=== PATIENT | male | born 1970 | race Caucasian/White ===

== ENCOUNTER 2024-10-06 18:57 | Emergency (ER) | payer OTHER, SELFPAY ==
--- NOTE | ~2024-10-06 | XR_ITS ---
EXAM: XR ankle LT min 3V DATE: 10/06/2024 19:25 HISTORY: pain . COMPARISON: None available. FINDINGS: Normal mineralization. Oblique fracture of the distal left fibula, with 2 mm lateral displ acement, extending to the joint line (Puente type B). Widening of the lateral gutter. No lytic or amairani tic lesion. Degenerative changes at the ankle joint and midfoot. Pes planus. Plantar and Achilles ent hesopathy. No erosion or periosteal change. Ankle soft tissue swelling. IMPRESSION: Oblique, mildly displaced fracture of the distal left fibula. Reviewed, dictated and finalized at location K.
--- NOTE | 2024-10-06 19:02 | ED.LOWEXIN ---
HPI - Extremity Injury (Lower) General Chief Complaint: Extremity Injury, Lower Stated Complaint: Fell Left ankle Time Seen by Provider: 10/06/24 19:02 Patient presents to the [facility] accompanied by family with complaints of left ankle pain and swelling that began about 2 hours prior to arrival when patient was walking in his yd and slipped in a hole. Patient noticed significant pain with weight-bearing in significant swelling but this should be looked at. Denies numbness or tingling in foot or toes. Related Data Allergies Allergy/AdvReac Type Severity Reaction Status Date / Time No Known Allergies Allergy Verified 10/06/24 19:13 Review of Systems Constitutional: Constitutional: Reports as per HPI, Denies chills, Denies fatigue, Denies fever(s) and Denies weakness Eyes: Eyes: Reports no additional eye complaints Cardiovascular: Cardiovascular: Reports no additional cardiovascular complaints Respiratory: Respiratory: Reports no additional respiratory complaints Gastrointestinal: Gastrointestinal: Reports no additional gastrointestinal complaints Genitourinary: Genitourinary: Reports no additional male genitourinary complaints Musculoskeletal: Musculoskeletal: Reports as per HPI, Reports arthralgias, Reports joint swelling and Denies muscle cramps Integumentary/Breasts: Skin/Breast: Reports as per HPI, Denies pruritus, Denies rash and Denies skin ulcer Neurologic: Reports as per HPI, Denies numbness and Denies weakness Psychiatric: Psychiatric: Reports no additional psychiatric complaints Endocrine: Endocrine: Reports no additional endocrine complaints Hematologic/Lymphatic: Hematologic/Lymphatic: Reports no additional hematologic/lymphatic complaints Allergic/Immunologic: Allergic/Immunologic: Reports no additional allergic/immunologic complaints Exam Const: General: healthy appearing and no acute distress Nutritional Appearance: well nourished Orientation/consciousness: patient oriented x3 Limitations: no limitations Resp: Effort & Inspection: normal respiratory effort Cardio: Rate: regular rate Skin: General skin exam: normal color Rashes: no rashes Wounds: no wounds Neuro: General: patient oriented x3 Speech: normal speech Gait exam (Neuro): gait abnormal ( Limping, limited by pain) Extrem: Left lower extremity: ankle Details: abnormal to inspection, tenderness, swelling, pitting edema and abnormal ROM; no abrasions, no lacerations, no ecchymosis, no crepitus and achilles tendon exam normal Psych: Mental Status: mental status grossly normal Affect: normal affect Attitude: cooperative Course Course Level of Care: Express Care Visit Vital Signs Vital signs: Vital Signs Temperature 98.4 F 10/06/24 19:10 Pulse Rate 66 10/06/24 19:10 Respiratory Rate 20 10/06/24 19:10 Blood Pressure 149/92 H 10/06/24 19:10 Pulse Oximetry 100 10/06/24 19:10 Oxygen Delivery Room Air 10/06/24 19:10 Temperature 98.4 F 10/06/24 19:10 Pulse Rate 66 10/06/24 19:10 Respiratory Rate 20 10/06/24 19:10 Blood Pressure 149/92 H 10/06/24 19:10 Pulse Oximetry 100 10/06/24 19:10 Oxygen Delivery Room Air 10/06/24 19:10 MDM - Extremity Injury (Lower) MDM Narrative Medical decision making narrative: x-rays ordered spoke with patient about fracture. Noted he has tolerated hydrocodone in the past. Will send patient a prescription Discharge instructions reviewed with patient, as well as provided in writing per nursing staff. The instructions also include specific and strict return/GO TO THE ER as well as f/u information. All questions have been answered, and the patient deny any further questions with discharge and discharge plan. Differential Diagnosis Differential diagnosis: Likely ankle sprain and strain, fracture of toe and ankle fracture Medical Records Attestation: I reviewed the patient's medical records. Imaging Data Attestation: I personally reviewed and interpreted this imaging study as follows: My impression: fracture distal fibula Discharge Plan Discharge Clinical Impression: Fracture of distal end of left fibula Patient Disposition: Home Condition: Stable Instructions: Antibiotic Form, Ankle Fracture (ED) Additional Instructions: There is a fracture shown your x-ray. We have placed you in an temporary cast keep this all times. do not get this wet. May cover with a plastic bag retract back to shower. Call the orthopedic physician you have been given to schedule an appointment as soon as possible. Ensure to take a disc of your x-ray results with you. Ice to the area 15-20 minutes 4-6 times a day until follow up with orthopedics. Minimize activities and rest the affected area as much as possible. Elevate above heart as much as possible to reduce swelling Do not put any weight on this left leg. Use Crutches as directed if needed for walking social services assistant at all times; however be caution when going up and down the stairs. You may take over the counter tylenol and ibuprofen as needed for pain. May use the hydrocodone as needed for severe pain. This medication can make you drowsy do not drive, drink alcohol or operate heavy machinery while taking this medication. If you notice significantly increased pain, redness, and numbness, or tingling does to the emergency room for further evaluation of symptoms. Patient Language: Upper Sorbian Prescriptions: New hydrocodone-acetaminophen 5-325 mg tablet 1 tablet PO Q6H PRN (Reason: pain) Qty: 14 0RF Follow-up/Referrals: [facility] [Provider Group] (They have an [place] and [place] office as well. ) Naveed Rosenberg MD [Physician] - Gregg,Daphne Victor NP [Primary Care Provider] - Time of Disposition: 19:49
--- OUTSIDE RECORDS SUMMARY | 2024-10-06 19:06 | XMS_ITS | Clinical Summary ---
Author Organization [facility] Address [address] [place] [address] Phone Care Team Providers Care Stakeholder Manager Name Role Phone Unavailable Primary Care Provider Unavailabl e Allergies No known active allergies Medications diclofenac (VOLTAREN) 75 MG Tablet Delayed ResponseIndicat ions:Chronic pain of left knee TAKE 1 TABLET BY MOUTH TWICE DAILY NEEDED FOR MODERATE TO MORE SEVERE PAIN 180 Tab 07/19/2018 Active Active Problems Problem Noted Date Diagnosed Date Impaired fasting glucose 07/20/2018 Hyperlipidemia 07/20/2018 Family History Medical History Relation Name Comments No Known Problems Brother Cancer Father No Known Problems Maternal Grandfather No Known Problems Maternal Grandmother No Known Problems Mother No Known Problems Paternal Grandfather No Known Problems Paternal Grandmother Chronic Obstructive Pulmonary Disease Sister Cystic Fibrosis Sister Heart Attack Sister Relation Name Status Comments Brother Alive Father Alive Maternal Grandfather Maternal Grandmother Mother Alive Paternal Grandfather Paternal Grandmother Sister Alive Social History Tobacco Use Types Packs/Day Years Used Date Smoking Tobacco: Never Smokeless Tobacco: Never Alcohol Use Standard Drinks/Week Comments Yes 2 (1 standard drink = 0.6 oz pur e alcohol) social PHQ-2 Answer Date Recorded PHQ-2 Score 0 11/27/2018 Sex and Gender Information Value Date Recorded Sex Assigned at Not on file Legal Sex Male 11:45 PM CDT Gender Identity Not on file Sexual Orientation Not on file Last Filed Vital Signs Vital Sign Reading Time Taken Comments Blood Pressure 124/74 07/19/2018 8:26 AM CDT Pulse 78 07/19/2018 8:26 AM CDT Temperature 35.8 C (96.4 F) 07/19/2018 8:26 AM CDT Respiratory Rate 20 07/19/2018 8:26 AM CDT Oxygen Saturation 99% 07/19/2018 8:26 AM CDT Inhaled Oxygen Concentration - - Weight 84 kg (185 lb 1.6 oz) 07/19/2018 8:26 AM CDT Height 182.9 cm (6') 07/19/2018 8:26 AM CDT Body Mass Index 25.1 07/19/2018 8:26 AM CDT Plan of Treatment Health Maintenance Due Date Last Done Comments Hepatitis C Virus (HCV) Screening 1969 TdaP Immunization 1969 Hepatitis B Immunization (1 of 3 - 19+ 3-dose series) 1988 Cologuard 2014 Colonoscopy 2014 Colorectal Cancer Screening 2014 Immunochemical Fecal Occult Blood 2014 Pneumococcal Immunization (5 0+ years) (1 of 1 - PCV) 09/06/2019 Zoster Immunization (1 of 2) 09/06/2019 SARS-COV-2 Immunization (1 - season) 2023 PSA Discussion 2024 Influenza Immunization (#1) 2024 Respiratory Syncytial Virus (RSV) Immunization (Adult) (1 - 1-dose 75+ series) 2044 Human Papillomavirus (HPV) Immunization Aged Out No longer eligible b ased on patient's age to complete this topic Meningococcal Immunization (ACWY) Aged Out No longer eligible based on patient's age to complete this topic Rotavirus Immunization Aged Out No lo nger eligible based on patient's age to complete this topic Insurance [facility] [employer] [place] [id number]
--- OUTSIDE RECORDS SUMMARY | 2024-10-06 19:06 | XMS_ITS | Clinical Summary ---
Author Organization [address] Address [address] [place] [id number] Care Team Providers Care Rouge Mixer Name Role Phone Jack Chaidez MD Primary Care Provider + Allergies No known active allergies Medications No known medications Active Problems Problem Noted Date Diagnosed Date Encounter for screening colonoscopy 12/11/2023 Personal history of colonic polyps 12/11/2023 Encounters Date Type Department Care Team Description 08/07/2024 10:40 AM CDT Procedure visit [facility] Neurological Testing [address] [facility] 6th [place] [phone] Quadriparesis (HCC); Idiopathic peripheral neuropathy 08/07/2024 Results Follow-Up [facility] [address] [place] [phone] Mariza Corona MA EMG/NCV - 07/31/2024 6:35 AM CDT Lab [facility] [address] [place] [address] 07/08/2024 10:05 AM CDT Lab [address] Quadriparesis (HCC); Idiopathic peripheral neuropathy 07/08/2024 9:00 AM CDT Office Visit [facility] [address] [place] [phone] Vitaly Roger MD Quadriparesis (HCC) (Primary Dx); Gait instability; Idiopathic peripheral neuropathy 07/08/2024 Orders Only [facility] [address] [place], [place] [address], [place] [address] Provider, MD Munira from Last 3 Months Surgical History Surgery Date Site/Laterality Comments ANKLE SURGERY Right COLONOSCOPY 10 years COLONOSCOPY 04/17/2024 Medical History Medical History Date Comments HLD (hyperlipidemia) Covid-19 Adenomatous colon polyp Family History Medical History Relation Name Comments No Known Problems Father No Known Problems Mother Relation Name Status Comments Father Mother Alive Social History Tobacco Use Types Packs/Day Years Used Date Smoking Tobacco: Never Smokeless Tobacco: Never Tobacco Cessation:Counseling Given: Not Answered AUDIT-C Answer Date Recorded Q1: How often do you have a drink containing alcohol? Never 04/17/2024 Q2: How many drinks containi ng alcohol do you have on a typical day when you are drinking? Patient does not drink Q3: How often do you have si x or more drinks on one occasion? Never 04/17/2024 Personal Safety Answer Date Recorded Have you ever been in or are you currently in a harmful physical or emotional relationship or is someone making you feel afraid or unsafe? Denies 04/17/2024 Sex and Gender Information Value Date Recorded Sex Assigned at Not on file Legal Sex Male 10:02 AM ASSISTANT MANAGER RETAIL Gender Identity Male 12/22/2023 7:23 AM CDT Sexual Orientation Not on file Obstetrics History Last Filed Vital Signs Vital Sign Reading Time Taken Comments Blood Pressure 136/85 07/08/2024 9:00 AM CDT Pulse 71 07/08/2024 9:00 AM CDT Temperature 36.5 C (97.7 F) 04/17/2024 9:00 AM ASSISTANT MANAGER RETAIL Respiratory Rate 18 04/17/2024 9:00 AM ASSISTANT MANAGER RETAIL Oxygen Saturation 100% 07/08/2024 9:00 AM CDT Inhaled Oxygen Concentration - - Weight 76.7 kg (169 lb 3.2 oz) 07/08/2024 9:00 A M CDT Height 182.9 cm (6' 0.01) 07/08/2024 9:00 AM CD T Body Mass Index 22.94 07/08/2024 9:00 AM CDT Plan of Treatment Health Maintenance Due Date Last Done Comments Depression Screening 1970 Hepatitis C Screening 1970 DTaP/Tdap/Td Vaccine (1 - Tdap) 1980 Hepatitis B Screening 09/06/1987 Regular Well Visit/Exam 18-64 09/06/1987 Zoster Vaccine (1 of 2) 09/06/2019 Influenza Vaccine (#1) 2024 Prostate Cancer Screening-PSA 11/15/2025 11/16/2023 Colon Cancer Screening-Colonoscopy 04/17/2034 04/17/2024 Colon Cancer Screening-CT Colonography Discontinued 04/17/2024 Colon Cancer Screening-DNA Stool Discontinued 04/17/19 Colon Cancer Screening-FIT Discontinued 04/17/2024 Colon Cancer Screening-Sigmoidoscopy Discontinued 04/17/2024 Pneumococcal vaccine <65 Aged Out No longer eligible based on patient's age to complete this topic Procedures Procedure Name Priority Date/Time Associated Diagnosis Comments EMG/NCV Routine 08/07/2024 10:41 AM CDT Quadriparesis (HCC) Idiopathic peripheral neuropathy EGFR Routine 07/31/2024 6:40 AM CDT COMPREHENSIVE METABOLIC PANEL Routine 07/31/2024 6:40 AM CDT LIPID PANEL Routine 07/31/2024 6:40 AM CDT MRI BRAIN CERVICAL SPINE WO CONTRAST Schedule Routine, Read Routine (OP Routine) 07/08/2024 11:11 AM CDT MUSK ANTIBODY Routine 07/08/2024 10:08 AM CDT MYASTHENIA GRAVIS EVALUATION WITH MUSK REFLEX Routine 07/08/2024 10:08 AM CDT SOL QUALITATIVE WITH REFLEX TO SOL QUANTITATIVE Routine 07/08/2024 10:03 AM CDT Quadriparesis (HCC) Idiopathic peripheral neuropathy ERYTHROCYTE SEDIMENTATION RATE Routine 07/08/2024 10:03 AM CDT Quadriparesis (HCC) Idiopathic peripheral neuropathy VITAMIN D 25 HYDROXY Routine 07/08/2024 10:03 AM CDT Quadriparesis (HCC) Idiopathic peripheral neuropathy VITAMIN B12 Routine 07/08/2024 10:03 AM CDT Quadriparesis (HCC) Idiopathic peripheral neuropathy METHYLMALONIC ACID, SERUM Routine 07/08/2024 10:03 AM CDT Quadriparesis (HCC) Idiopathic peripheral neuropathy CRP (ACUTE PHASE) Routine 07/08/2024 10: 03 AM CDT Quadriparesis (HCC) Idiopathic peripheral neuropathy CREATINE KINASE (CK), TOTAL Routine 07/08/2024 10:03 AM CDT Quadriparesis (HCC) Idiopathic peripheral neuropathy COLONOSCOPY 04/17/2024 7:20 AM ASSISTANT MANAGER RETAIL PSA SCREEN Routine 11/16/2023 6:46 AM CDT from Last 3 Months or Most Recently Relevant to Health Maintenance Results * EMG/NCV (08/07/2024 10:41 AM CDT) Anatomical Region Laterality Modality Other Narrative 08/07/2024 10:41 AM CDT Rocio Montiel MD 08/07/2024 11:56 AM EMG/NCV - Date/Time: 08/07/2024 10:41 AM Performed by: Rocio Montiel MD Authorized by: Vitaly Roger MD Vitaly Roger MD NEUROLOGY ORDERABLES Final Resul t * eGFR (07/31/2024 6:40 AM CDT) eGFR >90 >=60 mL/min/1. 73 m2 Comment: Interpretive Data Reference Interval Normal >/= 90 mL/min/1.73m2 Mildly decreased* 60 - 89 mL/min/1.73m2 Mildly to moderately decreased 45 - 59 mL/min/1.73m2 Moderately to severely decreased 30 - 44 mL/min/1.73m2 Severely decreased 15 - 29 mL/min/1.73m2 Kidney Failure < 15 mL/min/1.73m2 *Relative to young adult level Estimated glomerular filtration rate is determined by the 2020 CKD-EPI equation recommended by the National Kidney Foundation (A Unifying Approach to GFR Estimation: Recommendations of the NKF-ASK Task Force on Reassessing the Inclusion of Race in Diagnosing Kidney Disease, JASN 2020). The CKD-EPI equation should not be used for patients with unstable renal function and has not been validated in children and those over 70. Current interpretive data was last reviewed 2021. Blood 07/31/2024 6:40 AM CDT 07/31/2024 6:49 AM CDT us Daphne Escobedo NURSE'S ASSISTANT LAB BLOOD ORDERABLES Final Res ult K[facility]IA GUILLEN ([place]) 1 [facility] [place] [address] * (ABNORMAL) Lipid panel (07/31/2024 6:40 AM CDT) Cholesterol 186 30 - 199 mg/dL Comment: Interpretive Data Ages < or = 19 years Acceptable: <170 mg/dL Borderline high: 170-199 mg/dL High: >or= 200 mg/dL Ages > or = 20 years Desirable: <200 mg/dL Borderline high: 200-239 mg/dL High: >or= 240 mg/dL Literature References: 1. Expert Panel on Integrated Guidelines for Cardiovascular Health and Risk Reduction in Children and Adolescents. Pediatrics 2011;128:S213 2. NCEP Expert Panel. Circulation 2004;110:227 Current Interpretive Data was last revised on 2017. Triglycerides 110 <=149 mg/dL [facility] ([place]) Comment: Interpretive Data Ages < or = 9 years Acceptable: <75 mg/dL Borderline high: 75-99 mg/dL High: >or= 100 mg/dL Ages 10 to 20 years Acceptable: <90 mg/dL Borderline high: 90-129 mg/dL High: >or= 130 mg/dL Ages > or = 20 years Desirable: <150 mg/dL Borderline high: 150-199 mg/dL High: 200-499 mg/dL Very high: >or= 499 mg/dL Literature References: 1. Expert Panel on Integrated Guidelines for Cardiovascular Health and Risk Reduction in Children and Adolescents. Pediatrics 2011;128:S213 2. NCEP Expert Panel. Circulation 2004;110:227 Current Interpretive Data was last revised on 2017. HDL 39(L) >=40 mg/dL KALIA Mariee ([place]) Comment: Interpretive Data Ages < or = 19 years Acceptable: >45 mg/dL Borderline low: 40-45 mg/dL Low: <40 mg/dL Ages > or = 20 years Desirable: >or= 60 mg/dL Low: <40 mg/dL Literature References: 1. Expert Panel on Integrated Guidelines for Cardiovascular Health and Risk Reduction in Children and Adolescents. Pediatrics 2011;128:S213 2. NCEP Expert Panel. Circulation 2004;110:227 Current Interpretive Data was last revised on 2017. LDL, calculated 127 <=129 mg/dL [facility]IA GUILLEN ([place]) Comment: Interpretive Data Ages < or = 19 years Acceptable: <110 mg/dL Borderline high: 110-129 mg/dL High: >or= 130 mg/dL Ages > or = 20 years Optimal: <100 mg/dL Near optimal: 100-129 mg/dL Borderline high: 130-159 mg/dL High: >160 mg/dL Calculated using the Pako LDL-C estimating equation. This equation was implemented on 2023. Prior to this date LDL-C was estimated using the Friedewald equation. Literature References: 1. Expert Panel on Integrated Guidelines for Cardiovascular Health and Risk Reduction in Children and Adolescents. Pediatrics 2011;128:S213 2. NCEP Expert Panel. Circulation 2004;110:227 3. Pako Barnhart et al. MIGUEL A Cardiol. 2019July 11;5(5):540-548. doi: 10.1001/jamacardio.2020.0013 Current Interpretive Data was last revised on 2023. Non-HDL Cholesterol 147 mg/dL [facility] GUILL[facility] ([place]) Comment: Interpretive Data Ages < or = 19 years Acceptable: <120 mg/dL Borderline high: 120-144 mg/dL High: >145 mg/dL Ages > or = 20 years When triglycerides are >200 mg/dL, Non-HDL cholesterol is a secondary target of therapy with treatment goals that are 30 mg/dL greater than the LDL cholesterol target. Literature References: 1. Expert Panel on Integrated Guidelines for Cardiovascular Health and Risk Reduction in Children and Adolescents. Pediatrics 2011;128:S213 2. NCEP Expert Panel. Circulation 2004;110:227 Current Interpretive Data was last revised on 2017. Chol/HDL ratio 5 [facility] ([place]) Blood 07/31/2024 6:40 AM CDT 07/31/2024 6:49 AM CDT us Daphne Escobedo NURSE'S ASSISTANT LAB BLOOD ORDERABLES Final Res ult [facility] ([place]) 1 [facility] Department [place] [address] * Comprehensive metabolic panel (07/31/2024 6:40 AM CDT) Sodium 142 135 - 145 mmol/L Potassium, pl 4.1 3.3 - 4.9 mmol/L [facility] ([place]) Chloride 105 97 - 110 mmol/L [facility] ([place]) CO2 26 22 - 32 mmol/L [facility] ([place]) Anion gap 11 2 - 15 mmol/L [facility] ([place]) BUN 15 6 - 25 mg/dL [facility] ([place]) Creatinine 0.94 0.80 - 1.30 mg/dL [facility] ([place]) Glucose 112 70 - 199 mg/dL [facility] ([place]) Comment: Interpretive Data Fasting glucose >/= 126 mg/dl is diagnostic for diabetes. Fasting is defined as no caloric intake for at least 8 hours. Fasting glucose between 100 mg/dl to 125 mg/dl is diagnostic of prediabetes. In a patient with classic symptoms of hyperglycemia or hyperglycemic crisis, a random glucose >/= 200 mg/dl is diagnostic for diabetes. In the absence of unequivocal hyperglycemia, results should be confirmed by repeat testing. The classification and Diagnosis of Diabetes Diabetes Care 2021; 46: S19-S40. Current interpretive data was last revised 2022. Calcium 9.6 8.5 - 10.3 mg/dL [facility] ([place]) Bilirubin, total 0.3 0.1 - 1.2 mg/dL [facility] ([place]) Protein, pl 7.0 6.5 - 8.5 g/dL [facility] ([place]) Albumin 4.3 3.5 - 5.0 g/dL [facility] ([place]) Alk phos 63 40 - 130 Units/L [facility] ([place]) ALT 25 7 - 55 Units/L [facility] ([place]) AST 25 10 - 50 Units/L [facility] ([place]) Blood 07/31/2024 6:40 AM CDT 07/31/2024 6:49 AM CDT Daphne Escobedo NURSE'S ASSISTANT LAB BLOOD ORDERABLES Final Res ult [facility] ([place]) 1 [facility] Department [place] [address] * MRI Brain and Cervical Spine WO Contrast (07/08/2024 11:11 AM CDT) Anatomical Region Laterality Modality Head and Neck N/A Magnetic Resonan ce Historical Provider MD MARIE MRI PROCEDURES Final Result * Myasthenia Gravis Evaluation with MuSK reflex (07/08/2024 10:08 AM CDT) Myasthenia Gravis with MuSK Interpretation See Comment [place] [facility] Comment: No informative autoantibodies were detected. A negative result does not exclude a diagnosis of autoimmune myasthenia gravis. Anti-acetylcholine receptor, binding 0.00 <=0.02 nmol/L [facility] ([place]) Comment: ADDITIONAL INFORMATION This test was developed and its performance characteristics determined by [facility] in a manner consistent with CLIA requirements. This test has not been cleared or approved by the U.S. Food and Drug Administration. Test Performed by: [facility] [address] [address] Water Truck Driver: Lea Croft Ph.D.; CLIA# [id number] Blood 07/08/2024 10:0 8 AM CDT 07/08/2024 1:30 PM CDT Vitaly Roger MD LAB BLOOD ORDERABLES Final Resul t [facility]IA [facility]LL[facility] ([place]) 1 [facility] [place] [address] [place] [facility] * MuSK Antibody (07/08/2024 10:08 AM CDT) MuSK ab 0.00 0.00 - 0.02 nmol/L [facility] Comment: ADDITIONAL INFORMATION This test was developed using an analyte specific reagent. Its performance characteristics were determined by [facility] in a manner consistent with CLIA requirements. This test has not been cleared or approved by the U.S. Food and Drug Administration. Test Performed by: [place] [address] Water Truck Driver: Lea Croft Ph.D.; CLIA# [id number] Blood 07/08/2024 10:0 8 AM CDT 07/08/2024 1:30 PM CDT Vitaly Roger MD LAB BLOOD ORDERABLES Final Resul t Performing Organization Address City/[facility] Co de Phone Number [facility]LL[facility] ([place]) 1 [facility] [place] [address] [place] [facility] * SOL ab ql w/rflx to SOL qn (07/08/2024 10:03 AM CDT) SOL Negative Comment: Interpretive Data Normal range for SOL Qualitative Antibody = Negative. 1. SOL is performed using indirect immunofluorescence against HEp-2 cells 2. SOL titers are performed on all positive qualitative results. 3. A significantly positive SOL result is defined as a positive nuclear fluorescence at a titer of 1:80 or greater. 4. 15% of normal people above age 65 have significantly positive SOL results. 5% or less of normal people age 65 or under have significantly positive SOL results. Current interpretive data was last revised on 2019. Testing performed by: [facility], [address] [place] [address] Blood 07/08/2024 10:0 3 AM CDT 07/08/2024 6:23 PM CDT Vitaly Roger MD LAB BLOOD ORDERABLES Final Resul t [facility] ([place]) 1 [facility] [place] [address] * Methylmalonic acid, serum (07/08/2024 10:03 AM CDT) MMA 0.09 <=0.40 nmol/mL [facility] Comment: ADDITIONAL INFORMATION This test was developed and its performance characteristics determined by [facility] in a manner consistent with CLIA requirements. This test has not been cleared or approved by the U.S. Food and Drug Administration. Test Performed by: [facility] [place] [address] Water Truck Driver: Lea Croft Ph.D.; CLIA# [id number] Blood 07/08/2024 10:0 3 AM CDT 07/08/2024 1:00 PM CDT Vitaly Roger MD LAB BLOOD ORDERABLES Final Resul t [facility] ([place]) 1 [facility] [place] [address] [place] * Vitamin D 25 hydroxy (07/08/2024 10:03 AM CDT) Vitamin D 25-OH 57 30 - 80 ng/mL Blood 07/08/2024 10:0 3 AM CDT 07/08/2024 1:00 PM CDT us Vitaly Roger MD LAB BLOOD ORDERABLES Final Resul t [facility] ([place]) 1 [facility] [place] [address] * Erythrocyte sedimentation rate (07/08/2024 10:03 AM CDT) Erythrocyte sedimentation rate 9 1 - 20 mm/hr Blood 07/08/2024 10:0 3 AM CDT 07/08/2024 1:00 PM CDT us Vitaly Roger MD LAB BLOOD ORDERABLES Final Resul t Performing Organization Address City/[facility]/ZIP Co de Phone Number [facility]LL[facility] ([place]) 1 [facility] [place] [address] * CRP (acute phase) (07/08/2024 10:03 AM CDT) CRP <3.0 <=10.0 mg/L Blood 07/08/2024 10:0 3 AM CDT 07/08/2024 1:00 PM CDT Vitaly Roger MD LAB BLOOD ORDERABLES Final Resul t Performing Organization Address City/[facility]/ZIP Co de Phone Number [facility] GUILL[facility] ([place]) 1 [facility] [place] [address] * Vitamin B12 (07/08/2024 10:03 AM CDT) Vitamin B12 849 230 - 1,250 pg/mL Blood 07/08/2024 10:0 3 AM CDT 07/08/2024 1:00 PM CDT Vitaly Roger MD LAB BLOOD ORDERABLES Final Resul t [facility] ([place]) 1 [facility] [place] [address] * Creatine kinase (CK), total (07/08/2024 10:03 AM CDT) CK 154 40 - 300 Units/L Blood 07/08/2024 10:0 3 AM CDT 07/08/2024 1:00 PM CDT us Vitaly Roger MD LAB BLOOD ORDERABLES Final Resul t [facility] ([place]) 1 [facility] Department [place] [address] * Colonoscopy (04/17/2024 7:20 AM ASSISTANT MANAGER RETAIL) Anatomical Region Laterality Modality Other Narrative Procedure Note Jeff Zhang, DO - 04/17/2024 7:20 AM CST [facility] Patient Name: Gil Bourgeois Procedure Date: 04/17/2024 7:20 AM Date of : 1970 Admit Type: Outpatient Age: 53 Gender: Male Attending MD: Jeff Zhang , D.O. Room: [facility] END[facility]COPY ROOM 3 Note Status: Finalized Patient Profile: Refer to note in patient chart for documentation of history and physical. Procedure: Colonoscopy Indications: High risk colon cancer surveillance: Personalhistory of colonic polyps, Last colonoscopy 10 years ago Referring MD: Jack Chaidez M.D. Providers: Jeff Zhang D.O. Impression: - The examined portion of the ileum was normal. - Internal hemorrhoids. - The examination was otherwise normal on directand retroflexion views. - No specimens collected. Recommendation: - Discharge patient to home. - Resume previous diet. - Continue present medications. - Repeat colonoscopy in 10 years for screening purposes. - Return to primary care physician PRN. Medicines: Monitored Anesthesia Care Complications: No immediate complications. Estimated Blood Loss: Estimated blood loss: none. Procedure: Pre-Anesthesia Assessment: - As per anesthesia. The benefits, risks and alternatives of theprocedure and sedation were discussed and informed consentwas obtained. All questions were answered. Please referto the signed informed consent document in the medical record. The bowel preparation used was Miralax via split dose instruction. The bowel preparation usedwas bisacodyl tablets via split dose instruction. The scope was passed under direct vision. The Pediatric Colonoscope [id number] was introduced through the anus and advanced to the 5 cm into the ileum. The colonoscopy was performed without difficulty. The patient tolerated the procedurewell. The quality of the bowel preparation was good. The terminal ileum, ileocecal valve, appendicealorifice, and rectum were photographed. Findings: The perianal and digital rectal examinations were normal. The terminal ileum appeared normal. Internal hemorrhoids were found. The hemorrhoids were medium-sized. The exam was otherwise without abnormality on direct and retroflexion views. Electronically signed by Jeff Zhang M.D. Jeff Zhang D.O. 04/17/2024 8:36:27 AM Number of Addenda: 0 Note Initiated On: 04/17/2024 7:20 AM Procedure Code(s): --- Professional --- G0105, Colorectal cancer screening; colonoscopy on individual at high risk --- Technical --- G0105, Colorectal cancer screening; colonoscopy on individual at high risk Diagnosis Code(s): --- Professional --- Z86.010, Personal history of colonic polyps K64.8, Other hemorrhoids --- Technical --- Z86.010, Personal history of colonic polyps K64.8, Other hemorrhoids CPT copyright 2020 [employer]. All rights reserved. The codes documented in this report are preliminary and upon surgical coder reviewmay be revised to meet current compliance requirements. Recognized by the [employer] for promoting quality in endoscopy us Jeff Zhang DO ENDOSCOPY PROCEDURES Final Res ult * PSA screen (11/16/2023 6:46 AM CDT) PSA-Total 1.32 <=3.90 ng/mL Comment: Interpretive Data AGE SEX REFERENCE INTERVAL 0 minutes-150 years Female None 0 minutes-49 years Male None 50-59 years Male 0-3.90 60-69 years Male 0-5.40 70-79 years Male 0-6.20 80-150 years Male 0-6.20 The Tim PSA Total assay procedure was used. Results from different manufacturers or methods may not be comparable. Serial testing should be performed using the same method. Current interpretive data last revised 21. Blood 11/16/2023 6:46 AM CDT 11/16/2023 6:58 AM CDT us Daphne Escobedo NURSE'S ASSISTANT LAB BLOOD ORDERABLES Final Res ult [facility] [place]) 1 [facility] [place] [address] from Last 3 Months or Most Recently Relevant to Health Maintenance Insurance [facility] CHOICE PLUS [facility] CHOICE PLUS Advance Directives For more information, please contact: [phone] * Full Code (Latest Code Status on File) Date Activated Date Inactivated Comments 04/17/2024 7:12 AM 04/17/2024 1:18 PM * Full Code Date Activated Date Inactivated Comments 04/17/2024 7:12 AM 04/17/2024 7:12 AM Care Teams Rouge Mixer Relationship Specialty Start Date End Date Jack Chaidez MD [address] [place] [address] PCP - General Internal Medicine 12/11/23
--- OUTSIDE RECORDS SUMMARY | 2024-10-06 19:06 | XMS_ITS | Referral Summary ---
Author Organization [address] Address [address] [place] [phone] Care Team Providers Care Project Account Manager Name Role Phone Jack Chaidez MD Primary Care Provider + Encounters Date Type Department Care Team Description 08/07/2024 Results Follow-Up [facility] [address] [place] [phone] Mariza Corona MA EMG/NCV - 08/07/2024 10:40 AM CDT Procedure visit [facility] [address] [facility] 6[address] [place] [phone] Quadriparesis (HCC); Idiopathic peripheral neuropathy 07/31/2024 6:35 AM CDT Lab [address] [phone] 07/08/2024 Orders Only [facility] [address] [place] [phone] Munira Harmon MD 07/08/2024 10:05 AM CDT Lab [address] Quadriparesis (HCC); Idiopathic peripheral neuropathy 07/08/2024 9:00 AM CDT Office Visit [facility] [address] [place] [phone] Vitaly Roger MD Quadriparesis ([facility]) (Primary Dx); Gait instability; Idiopathic peripheral neuropathy from Last 3 Months Allergies No known active allergies Medications No known medications Active Problems Problem Noted Date Diagnosed Date Encounter for screening colonoscopy 12/11/2023 Personal history of colonic polyps 12/11/2023 Social History Tobacco Use Types Packs/Day Years [...] on file Legal Sex 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 Gender Identity Male 12/22/2023 7:23 AM CDT Sexual Orientation Not on file Last Filed Vital Signs Vital Sign Reading Time Taken Comments Blood Pressure 136/85 07/08/2024 9:00 AM CDT Pulse 71 07/08/2024 9:00 AM CDT Temperature 36.5 C (97.7 F) 04/17/2024 9:00 AM MILITARY EDUCATION COORDINATOR Respiratory Rate 18 04/17/2024 9:00 AM MILITARY EDUCATION COORDINATOR Oxygen Saturation 100% 07/08/2024 9:00 AM CDT Inhaled Oxygen Concentration - - Weight 76.7 kg (169 lb 3.2 oz) 07/08/2024 9:00 A M CDT Height 182.9 cm (6' 0.01) 07/08/2024 9:00 AM CD T Body Mass Index 22.94 07/08/2024 9:00 AM CDT Plan of Treatment Not on file Procedures Procedure Name Priority Date/Time Associated Diagnosis [...] Idiopathic peripheral neuropathy COLONOSCOPY 04/17/2024 7:20 AM MILITARY EDUCATION COORDINATOR PSA SCREEN Routine 11/16/2023 6:46 AM CDT from Last 3 Months or Most Recently Relevant to Health Maintenance Results * EMG/NCV (08/07/2024 10:41 AM CDT) Anatomical Region Laterality Modality Other Narrative 08/07/2024 10:41 AM CDT Rocio Montiel MD 08/07/2024 11:56 AM EMG/NCV - Date/Time: 08/07/2024 10:41 AM Performed by: Rocio Montiel MD Authorized by: Vitaly Roger MD us Vitaly Roger MD NEUROLOGY ORDERABLES Final Resul [...] 07/31/2024 6:49 AM CDT us Daphne Escobedo AIRPORT RAMP AGENT LAB BLOOD ORDERABLES Final Res ult [facility] ([place]) [facility] [place] [address] * (ABNORMAL) Lipid panel (07/31/2024 6:40 AM [...] last revised on 2017. Chol/HDL ratio 5 EDIS [facility] ([place]) Blood 07/31/2024 6:40 AM CDT 07/31/2024 6:49 AM CDT us Daphne Escobedo NP LAB BLOOD ORDERABLES Final Res ult [facility] ([place]) [facility] Department [place] [address] * Comprehensive metabolic panel (07/31/2024 6:40 AM CDT) Sodium 142 135 - 145 mmol/L Potassium, pl 4.1 3.3 - 4.9 mmol/L [facility] ([place]) Chloride 105 97 - 110 mmol/L [facility] ([place]) CO2 26 22 - 32 mmol/L [facility] ([place]) Anion gap 11 2 - [...] 07/31/2024 6:49 AM CDT us Daphne Escobedo AIRPORT RAMP AGENT LAB BLOOD ORDERABLES Final Res ult [facility] ([place]) 1 [facility] Department of Laboratories [place], [place] [id number] * MRI Brain and Cervical Spine WO Contrast (07/08/2024 11:11 AM CDT) Anatomical Region Laterality Modality Head and Neck N/A Magnetic Resonan ce Historical Provider MD MARIE MRI PROCEDURES Final Result * Myasthenia Gravis Evaluation with MuSK reflex (07/08/2024 10:08 AM CDT) Myasthenia Gravis with MuSK Interpretation See Comment [facility] Comment: No informative autoantibodies were detected. A negative result does not exclude a diagnosis of autoimmune myasthenia gravis. Anti-acetylcholine receptor, binding 0.00 <=0.02 nmol/L [facility] ([place]) Comment: ADDITIONAL INFORMATION This test was developed and its performance characteristics determined by [facility] in a manner consistent with CLIA requirements. This test has not been cleared or approved by the U.S. Food and Drug Administration. Test Performed by: [facility] [place] [address] Wall Taper Helper: Lea Croft Ph.D.; CLIA# [id number] Blood 07/08/2024 10:0 8 AM CDT 07/08/2024 1:30 PM CDT Vitaly Roger MD LAB BLOOD ORDERABLES Final Resul t [facility] ([place]) 1 [facility] Department [place] [address] [facility] * MuSK Antibody (07/08/2024 10:08 AM CDT) MuSK ab 0.00 0.00 - 0.02 nmol/L [facility] Comment: ADDITIONAL INFORMATION This test was developed using an analyte specific reagent. Its performance characteristics were determined by [facility] in a manner consistent with CLIA requirements. This test has not been cleared or approved by the U.S. Food and Drug Administration. Test Performed by: [facility] - [address] [address] Wall Taper Helper: Lea Croft Ph.D.; CLIA# [id number] Blood 07/08/2024 10:0 8 AM CDT 07/08/2024 1:30 PM CDT us Vitaly Roger MD LAB BLOOD ORDERABLES Final Resul t Performing Organization Address [facility] Co de Phone Number [facility] ([place]) [address] [facility] [place] [address] [facility] * SOL ab ql w/rflx [...] last revised on 2019. Testing performed by: [facility], [address] [facility], [place]., [address] Blood 07/08/2024 10:0 3 AM CDT 07/08/2024 6:23 PM CDT us Vitaly Roger MD LAB BLOOD ORDERABLES Final Resul t Performing Organization Address [facility] Co de Phone Number [facility] ([place]) [address] [facility] [place] [address] * Methylmalonic acid, serum (07/08/2024 10:03 AM CDT) MMA 0.09 <=0.40 nmol/mL [facility] Comment: ADDITIONAL INFORMATION This test was developed and its performance characteristics determined by [facility] in a manner consistent with CLIA requirements. This test has not been cleared or approved by the U.S. Food and Drug Administration. Test Performed by: [facility] - [address] [address] Wall Taper Helper: Lea Croft Ph.D.; CLIA# [id number] Blood 07/08/2024 10:0 3 AM CDT 07/08/2024 1:00 PM CDT Vitaly Roger MD LAB BLOOD ORDERABLES Final Resul t [facility] ([place]) [address] [place] [address] [facility] * Vitamin D 25 hydroxy (07/08/2024 10:03 AM CDT) Vitamin D 25-OH 57 30 - 80 ng/mL Blood 07/08/2024 10:0 3 AM CDT 07/08/2024 1:00 PM CDT Vitaly Roger MD LAB BLOOD ORDERABLES Final Resul t Performing Organization Address [facility] Co de Phone Number [facility] ([place]) [address] [facility] [place] [address] * Erythrocyte sedimentation rate (07/08/2024 10:03 AM CDT) Erythrocyte sedimentation rate 9 1 - 20 mm/hr Blood 07/08/2024 10:0 3 AM CDT 07/08/2024 1:00 PM CDT Vitaly Roger MD LAB BLOOD ORDERABLES Final Resul t [facility] ([place]) [address] [facility] [place] [address] * CRP (acute phase) (07/08/2024 10:03 AM CDT) CRP <3.0 <=10.0 mg/L Blood 07/08/2024 10:0 3 AM CDT 07/08/2024 1:00 PM CDT Vitaly Roger MD LAB BLOOD ORDERABLES Final Resul t [facility] ([place]) [address] [facility] [place] [address] * Vitamin B12 (07/08/2024 10:03 AM CDT) Vitamin B12 849 230 - 1,250 pg/mL Blood 07/08/2024 10:0 3 AM CDT 07/08/2024 1:00 PM CDT Vitaly Roger MD LAB BLOOD ORDERABLES Final Resul t Performing Organization Address [facility] Co de Phone Number [facility] ([place]) [address] [facility] [place] [address] * Creatine kinase (CK), total (07/08/2024 10:03 AM CDT) CK 154 40 - 300 Units/L Blood 07/08/2024 10:0 3 AM CDT 07/08/2024 1:00 PM CDT Vitaly Roger MD LAB BLOOD ORDERABLES Final Resul t Performing Organization Address [facility] Co de Phone Number [facility] ([place]) [address] [facility] [place] [address] * Colonoscopy (04/17/2024 7:20 AM MILITARY EDUCATION COORDINATOR) Anatomical Region Laterality Modality Other Narrative Procedure Note Jeff Zhang, - 04/17/2024 7:20 AM CST [facility] Patient Name: Gil Bourgeois Procedure Date: 04/17/2024 7:20 AM Date of : 1970 Admit Type: Outpatient Age: 53 Gender: Male Attending MD: Jeff Zhang D.O. Room: [facility] ENDOSCOPY ROOM 3 Note Status: Finalized Patient [...] passed under direct vision. The Pediatric Colonoscope [id number] was introduced through the anus and advanced [...] polyps K64.8, Other hemorrhoids CPT copyright 2020 [employer]. All rights reserved. The codes documented in this report are preliminary and upon table top tile setter reviewmay be revised to meet current compliance requirements. Recognized by the [employer] for promoting quality in endoscopy Jeff Zhang DO ENDOSCOPY PROCEDURES Final Res [...] CDT 11/16/2023 6:58 AM CDT us Daphne Escobeod AIRPORT RAMP AGENT LAB BLOOD ORDERABLES Final Res ult [facility] ([place]) [address] [facility] [place] [address] from Last 3 Months or Most Recently Relevant to Health Maintenance Insurance [facility]PPO Address: [place] [address] [facility]/PPO Address: [address] [address] [place] [address] Advance Directives For more information, please contact: [phone] * Full Code (Latest Code Status on File) Date Activated Date Inactivated Comments 04/17/2024 7:12 AM 04/17/2024 1:18 PM * Full Code Date Activated Date Inactivated Comments 04/17/2024 7:12 AM 04/17/2024 7:12 AM Care Teams Project Account Manager Relationship Specialty Start Date End Date Jack Chaidez MD [address] [facility] [place] [address] PCP - General Internal Medicine 12/11/23
--- OUTSIDE RECORDS SUMMARY | 2024-10-06 19:06 | XMS_ITS | Encounter Summary ---
Author Organization [facility] Healthcare Address [address] [place] [address] Care Team Providers Care Document Advisor Name Role Phone Jcak Chaidez MD Primary Care Provider + Encounter Details Date Type Department Care Team (Late st Contact Info) Description 08/07/2024 Results Follow-Up [facility] [address] [place] [phone] Mariza Corona MA EMG/NCV - Social History Tobacco Use Types Packs/Day Years Used Date Smoking Tobacco: Never Smokeless Tobacco: Never AUDIT-C Answer Date Recorded Q1: How often [...] on file 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 documented in this encounter Plan of Treatment Not on file documented as of this encounter Visit Diagnoses Not on filedocumented in this encounter Care Teams Document Advisor Relationship Specialty Start Date End Date Jack Chaidez MD [address] [place] [address] PCP - General Internal Medicine 12/11/23 documented as of this encounter
[2024-10-06 19:10] VITALS: BP 149/92; PULSE 66; RESP 20; TEMP 36.9; O2SAT 100
== END 2024-10-06 19:58 | disposition home or self-care (01) ==
PROVIDERS: Emergency Provider Nurse Practitioner Family; PCP Nurse Practitioner Adult Health
DX: S82.832A Other fracture of upper and lower end of left fibula, initial encounter for closed fracture (principal); W17.2XXA Fall into hole, initial encounter
CPT/HCPCS: 29515; 73610; 99204; G0463